=== PATIENT | female | born 1980 | race Caucasian/White ===

== ENCOUNTER 2023-03-28 02:25 | Emergency (ER) | payer MEDICAID ==
[~2023-03-28] VITALS: Ht 157.5 cm; Wt 49.4 kg
[2023-03-28 02:30] VITALS: BP 129/55; PULSE 101; RESP 18; TEMP 97.9; O2SAT 97
[2023-03-28] MEDS ORDERED: KETOROLAC 60 MG/2 ML VIAL IM ONE (03:00)
[2023-03-28] MEDS ORDERED: IBUP-2213 PO (03:18)
[2023-03-28] MEDS ORDERED: ACET-8905 PO (03:18)
[2023-03-28 04:00] VITALS: BP 103/60; PULSE 80; RESP 14; O2SAT 98
== END 2023-03-28 03:57 | disposition home or self-care (01) ==
LOC: MED 02:25
DX: S00.12XA Contusion of left eyelid and periocular area, initial encounter (principal); M25.511 Pain in right shoulder; M54.2 Cervicalgia; Y08.89XA Assault by other specified means, initial encounter; Y93.89 Activity, other specified; Y92.89 Other specified places as the place of occurrence of the external cause; Y99.8 Other external cause status
CPT/HCPCS: 96372; 99283; J1885